=== PATIENT | male | born 1975 ===

== ENCOUNTER 2024-03-12 14:46 | Emergency (ER) | payer OTHER ==
[~2024-03-12] VITALS: Ht 182.9 cm; Wt 90.7 kg
[~2024-03-12 14:46] MED LIST: ACET325 PO; ATOR10 PO; ATOR40TA PO; GABA100 PO; INSULIN GL100 UNIT/2 SC; LISI5 PO; STEGLATRO5 MG PO; VITAMIN D350 MC3
[2024-03-12] MEDS ORDERED: Ondansetron HCl 2 MG / ML 2ML Vial IV ONE ×2 (15:05→17:10)
[2024-03-12] MEDS ORDERED: NS 1,000 ML IV SCH (15:05)
[2024-03-12 15:39] LABS: BASOPHILS ABSOLUTE AUTO 0.03 K/mm3 (0.00-0.23); BASOPHILS PERCENT AUTO 0 % (0-2); Base Excess Venous 0.7 mmol/L; Bicarbonate Venous 26.2 mmol/L (24.0-30.0); EOSINOPHILS PERCENT AUTO 0 % (0-6); Hematocrit 39.6 % (37.0-53.0); Hemoglobin 14.2 g/dL (13.5-17.5); IMMATURE GRAN ABSOLUTE AUTO 0.04 K/mm3 (0.00-0.10); IMMATURE GRAN PERCENT AUTO 0 % (0-1); LYMPHOCYTES ABSOLUTE AUTO 1.38 K/mm3 (0.84-5.20); LYMPHOCYTES PERCENT AUTO 11 % (21-46); MONOCYTES PERCENT AUTO 3 % (4-13); Mean Corpuscular HGB 31.6 pg (26.0-34.0); Mean Corpuscular HGB Conc 35.9 g/dL (31.5-36.5); Mean Corpuscular Volume 88 fL (80-100); Mean Platelet Volume 9.6 fL (9.1-12.4); NEUTROPHILS ABSOLUTE AUTO 10.24 K/mm3 (1.96-9.15); NEUTROPHILS PERCENT AUTO 85 % (41-73); PCO2 Venous 26.4 mmHg (38-42); Platelet Count 275 K/mm3 (150-400); RDW Coefficient Variation 11.7 % (11.7-14.2); RDW Standard Deviation 37.8 fL (35.1-46.3); White Blood Cell Count 12.09 K/mm3 (4.00-11.30); pH Blood Venous 7.55 (7.34-7.37)
[2024-03-12 15:57] LABS: Albumin, Blood 4.3 g/dL (3.4-5.0); Albumin/Globulin Ratio 1.3 (0.8-1.8); Bilirubin, Total 0.7 mg/dL (0.1-1.0); Bun/Creatinine Ratio 31.7 (12.0-20.0); Creatinine, Blood 0.57 mg/dL (0.60-1.20); Globulin, Blood 3.3 g/dL (2.2-4.0); Potassium, Blood 3.8 mmol/L (3.5-5.5); Total Protein, Blood 7.6 g/dL (6.4-8.2)
[2024-03-12] MEDS ORDERED: Insulin Glargine-Yfgn 100 Unit/mL 3 ML SYR SC ONE (16:35)
[2024-03-12] MEDS ORDERED: BASAGLAR K100 UNIT/1 SC (16:39)
[2024-03-12] MEDS ORDERED: Ketorolac Tromethamine 30mg Vial IV ONE (17:05)
[2024-03-12 17:15] VITALS: BP 137/86
== END 2024-03-12 17:44 | disposition home or self-care (01) ==
LOC: ER 14:46
PROVIDERS: Physician Assistant
DX: E11.65 Type 2 diabetes mellitus with hyperglycemia (principal); E86.0 Dehydration; Z79.4 Long term (current) use of insulin; Z79.899 Other long term (current) drug therapy; Z88.0 Allergy status to penicillin
CPT/HCPCS: 80053; 82803; 85025; J1815; J1885; J2405; J7030

== ENCOUNTER 2024-10-08 09:56 | Emergency (ER) | payer OTHER ==
[~2024-10-08] VITALS: Ht 152.4 cm; Wt 95.2 kg
[~2024-10-08 09:56] MED LIST changes: +BASAGLAR K100 UNIT/1 SC; +ONDA4ODT MM; +OXAYDO5 M1 PO
[2024-10-08 10:03] VITALS: BP 155/131
[2024-10-08] MEDS ORDERED: Methocarbamol 500 MG Tab PO ONE (10:25)
[2024-10-08] MEDS ORDERED: Acetaminophen 500 MG Tab PO ONE (10:25)
[2024-10-08] MEDS ORDERED: Ketorolac Tromethamine 30mg Vial IM ONE (10:25)
[2024-10-08] MEDS ORDERED: Robaxin750 MG PO (11:31)
[2024-10-08] MEDS ORDERED: FAMO20 PO (11:31)
[2024-10-08] MEDS ORDERED: IBU600 M1 PO (11:31)
== END 2024-10-08 11:28 | disposition home or self-care (01) ==
LOC: ER 09:56
DX: M54.50 Low back pain, unspecified (principal); G89.29 Other chronic pain; E11.9 Type 2 diabetes mellitus without complications
CPT/HCPCS: 96372; 99283-25; A9270; J1885

== ENCOUNTER 2024-11-02 07:24 | Day surgery (SDC) | payer OTHER ==
[~2024-11-02] VITALS: Ht 182.9 cm; Wt 93.0 kg
[~2024-11-02 07:24] MED LIST changes: +FAMO20 PO; +IBU600 M1 PO; +Robaxin750 MG PO
[2024-11-02] MEDS ORDERED: propofoL 50 ML IV ONE ×2 (07:37→09:46)
[2024-11-02] MEDS ORDERED: Lactated Ringer's 1,000 ML IV ONE ×2 (07:38→08:34)
[2024-11-02] MEDS ORDERED: LOSA25 (08:07)
[2024-11-02] MEDS ORDERED: Midazolam HCL 1 MG/ML 5MLVIAL ONE (09:29)
[2024-11-02 10:26] VITALS: BP 110/72
--- NOTE | 2024-11-02 14:31 | NUR ---
11/02/24 1431 Sarah Rodriguez LATE ENTRY: DUE TO MULTIPLE BODILY MOVEMENTS EVEN WHILE SEDATED PT MAY NEED TO BE ANESTHESIA NEXT TIME.
== END 2024-11-02 10:33 | disposition home or self-care (01) ==
LOC: ORSCSDS 07:24
PROVIDERS: Internal Medicine Gastroenterology
PROC: 0DJ08ZZ Inspection of Upper Intestinal Tract, Via Natural or Artificial Opening Endoscopic (ICD-10-PCS; principal; 2024-11-02 09:00)
PROC: 0DJD8ZZ Inspection of Lower Intestinal Tract, Via Natural or Artificial Opening Endoscopic (ICD-10-PCS; principal; 2024-11-02 09:00)
DX: R10.31 Right lower quadrant pain (principal); K21.9 Gastro-esophageal reflux disease without esophagitis; K92.0 Hematemesis; K44.9 Diaphragmatic hernia without obstruction or gangrene; E11.10 Type 2 diabetes mellitus with ketoacidosis without coma; R74.8 Abnormal levels of other serum enzymes; Z87.11 Personal history of peptic ulcer disease; Z79.899 Other long term (current) drug therapy
CPT/HCPCS: 82947; J2250; J2704; J7120

== ENCOUNTER 2024-11-04 19:08 | Emergency (ER) | payer OTHER ==
[~2024-11-04] VITALS: Ht 180.3 cm; Wt 90.7 kg
[~2024-11-04 19:08] MED LIST changes: +LOSA25
[2024-11-04] MEDS ORDERED: Ondansetron HCl 2 MG / ML 2ML Vial IV ONE (19:20)
[2024-11-04 19:33] LABS: BASOPHILS ABSOLUTE AUTO 0.07 K/mm3 (0.00-0.23); BASOPHILS PERCENT AUTO 1 % (0-2); EOSINOPHILS PERCENT AUTO 1 % (0-6); Hematocrit 41.7 % (37.0-53.0); IMMATURE GRAN ABSOLUTE AUTO 0.04 K/mm3 (0.00-0.10); IMMATURE GRAN PERCENT AUTO 0 % (0-1); LYMPHOCYTES ABSOLUTE AUTO 3.27 K/mm3 (0.84-5.20); LYMPHOCYTES PERCENT AUTO 27 % (21-46); MONOCYTES ABSOLUTE AUTO 1.07 K/mm3 (0.16-1.47); MONOCYTES PERCENT AUTO 9 % (4-13); Mean Corpuscular HGB 31.4 pg (26.0-34.0); Mean Corpuscular Volume 87 fL (80-100); Mean Platelet Volume 9.2 fL (9.1-12.4); NEUTROPHILS PERCENT AUTO 62 % (41-73); Platelet Count 352 K/mm3 (150-400); RDW Coefficient Variation 11.9 % (11.7-14.2); RDW Standard Deviation 38.2 fL (35.1-46.3); Red Blood Cell Count 4.78 M/mm3 (4.30-5.90); White Blood Cell Count 12.05 K/mm3 (4.00-11.30)
[2024-11-04 20:08] LABS: Albumin, Blood 4.8 g/dL (3.4-5.0); Albumin/Globulin Ratio 1.3 (0.8-1.8); Bilirubin, Total 0.8 mg/dL (0.1-1.0); Bun/Creatinine Ratio 30.3 (12.0-20.0); Calcium, Blood 10.1 mg/dL (8.5-10.1); Creatinine, Blood 0.76 mg/dL (0.60-1.20); Globulin, Blood 3.7 g/dL (2.2-4.0); Potassium, Blood 3.7 mmol/L (3.5-5.5); Total Protein, Blood 8.5 g/dL (6.4-8.2)
[2024-11-04] MEDS ORDERED: Metoclopramide HCl 5MG / ML 2ML Vial IV ONE (23:00)
[2024-11-04] MEDS ORDERED: Ketorolac Tromethamine 30mg Vial IV ONE (23:00)
[2024-11-04] MEDS ORDERED: NS 1,000 ML IV SCH (23:00)
[2024-11-05 01:36] VITALS: BP 117/64
[2024-11-05] MEDS ORDERED: METO5A PO (02:04)
== END 2024-11-05 02:37 | disposition home or self-care (01) ==
LOC: ER 19:08
PROVIDERS: Student in an Organized Health Care Education/Training Program
DX: R11.2 Nausea with vomiting, unspecified (principal); E11.65 Type 2 diabetes mellitus with hyperglycemia; D72.829 Elevated white blood cell count, unspecified; E78.5 Hyperlipidemia, unspecified; G47.33 Obstructive sleep apnea (adult) (pediatric); I10 Essential (primary) hypertension; Z79.4 Long term (current) use of insulin; Z79.899 Other long term (current) drug therapy; Z88.0 Allergy status to penicillin
CPT/HCPCS: 74177; 80053; 84484; 85025; 93005; 93010; 96374-59; 96375; 99284-25; J1885; J2405; J2765; J7030; Q9967

== ENCOUNTER 2025-02-27 11:37 | Emergency (ER) | payer OTHER ==
[~2025-02-27] VITALS: Ht 182.9 cm; Wt 99.8 kg
[~2025-02-27 11:37] MED LIST changes: +METO5A PO
[2025-02-27] MEDS ORDERED: Ondansetron HCl 2 MG / ML 2ML Vial IV ONE (11:50)
[2025-02-27] MEDS ORDERED: Ketorolac Tromethamine 30mg Vial IV ONE (11:50)
[2025-02-27] MEDS ORDERED: NS 1,000 ML IV SCH ×2 (11:50→16:00)
[2025-02-27 12:33] LABS: BASOPHILS ABSOLUTE AUTO 0.05 K/mm3 (0.00-0.23); BASOPHILS PERCENT AUTO 0 % (0-2); EOSINOPHILS ABSOLUTE AUTO 0.00 K/mm3 (0.00-0.68); EOSINOPHILS PERCENT AUTO 0 % (0-6); Hematocrit 38.7 % (37.0-53.0); Hemoglobin 13.7 g/dL (13.5-17.5); IMMATURE GRAN ABSOLUTE AUTO 0.04 K/mm3 (0.00-0.10); IMMATURE GRAN PERCENT AUTO 0 % (0-1); LYMPHOCYTES ABSOLUTE AUTO 1.12 K/mm3 (0.84-5.20); LYMPHOCYTES PERCENT AUTO 9 % (21-46); MONOCYTES ABSOLUTE AUTO 0.39 K/mm3 (0.16-1.47); MONOCYTES PERCENT AUTO 3 % (4-13); Mean Corpuscular HGB Conc 35.4 g/dL (31.5-36.5); Mean Corpuscular Volume 88 fL (80-100); NEUTROPHILS ABSOLUTE AUTO 10.93 K/mm3 (1.96-9.15); NEUTROPHILS PERCENT AUTO 87 % (41-73); NRBC ABSOLUTE 0.00 K/mm3 (0.00-0.02); NRBC Auto 0.0 /100 WBC (0.0-0.2); Platelet Count 332 K/mm3 (150-400); RDW Coefficient Variation 11.7 % (11.7-14.2); RDW Standard Deviation 37.7 fL (35.1-46.3)
[2025-02-27 12:55] LABS: Alanine Aminotransfer (ALT/SGP 37.0 U/L (12-78); Albumin, Blood 4.5 g/dL (3.4-5.0); Albumin/Globulin Ratio 1.1 (0.8-1.8); Anion Gap 14.0 mmol/L (3-11); Aspartate Aminotrans (AST/SGOT 19.0 U/L (12-37); Bilirubin, Total 0.7 mg/dL (0.1-1.0); Blood Urea Nitrogen 20.0 mg/dL (8-24); CO2, Blood 21.0 mmol/L (21-32); Calcium, Blood 9.7 mg/dL (8.5-10.1); Chloride, Blood 105.0 mmol/L (98-108); Creatinine, Blood 0.66 mg/dL (0.60-1.20); Globulin, Blood 4.0 g/dL (2.2-4.0); Glucose, Blood 303.0 mg/dL (70-99); Potassium, Blood 3.8 mmol/L (3.5-5.5); Sodium, Blood 136.0 mmol/L (136-145); Total Protein, Blood 8.5 g/dL (6.4-8.2)
[2025-02-27] MEDS ORDERED: Metoclopramide HCl 5MG / ML 2ML Vial IV ONE (16:00)
[2025-02-27 18:12] LABS: Source, Urine Voided
[2025-02-27] MEDS ORDERED: Morphine Sulfate 4 MG/1 ML Injection IV ONE (18:15)
[2025-02-27 18:36] LABS: Bilirubin, Urine Neg (Neg); Color, Urine Yellow (P-Yellow); Glucose Qualitative, Urine 4+ (Neg); Ketones, Urine 4+ (Neg); Leukocyte Esterase, Urine Neg (Neg); Protein, Urine 1+ (Neg); Specific Gravity, Urine 1.015 (1.003-1.022); Urobilinogen, Urine NORM (Normal)
[2025-02-27] MEDS ORDERED: METO10 PO (19:10)
[2025-02-27 19:38] VITALS: BP 162/87
== END 2025-02-27 19:40 | disposition home or self-care (01) ==
LOC: ER 11:37
PROVIDERS: Emergency Medicine
DX: R11.2 Nausea with vomiting, unspecified (principal); E11.65 Type 2 diabetes mellitus with hyperglycemia; I10 Essential (primary) hypertension; E78.5 Hyperlipidemia, unspecified; G47.33 Obstructive sleep apnea (adult) (pediatric); Z88.0 Allergy status to penicillin; Z79.4 Long term (current) use of insulin; Z79.899 Other long term (current) drug therapy
CPT/HCPCS: 71045; 80053; 82947; 85025; 93005; 93010; 96361; 96374; 96375; 99284-25; J1885; J2270; J2405; J2765; J7030

== ENCOUNTER 2025-04-10 13:45 | Emergency (ER) | payer OTHER ==
[~2025-04-10] VITALS: Ht 182.9 cm; Wt 102.1 kg
[~2025-04-10 13:45] MED LIST changes: +METO10 PO
[2025-04-10] MEDS ORDERED: Ondansetron HCl 2 MG / ML 2ML Vial IV ONE (14:10)
[2025-04-10 14:28] LABS: BASOPHILS ABSOLUTE AUTO 0.06 K/mm3 (0.00-0.23); BASOPHILS PERCENT AUTO 1 % (0-2); EOSINOPHILS ABSOLUTE AUTO 0.01 K/mm3 (0.00-0.68); EOSINOPHILS PERCENT AUTO 0 % (0-6); Hematocrit 40.7 % (37.0-53.0); Hemoglobin 14.4 g/dL (13.5-17.5); IMMATURE GRAN ABSOLUTE AUTO 0.02 K/mm3 (0.00-0.10); IMMATURE GRAN PERCENT AUTO 0 % (0-1); LYMPHOCYTES ABSOLUTE AUTO 1.33 K/mm3 (0.84-5.20); LYMPHOCYTES PERCENT AUTO 12 % (21-46); MONOCYTES ABSOLUTE AUTO 0.48 K/mm3 (0.16-1.47); MONOCYTES PERCENT AUTO 4 % (4-13); Mean Corpuscular HGB Conc 35.4 g/dL (31.5-36.5); Mean Corpuscular Volume 88 fL (80-100); NEUTROPHILS ABSOLUTE AUTO 9.51 K/mm3 (1.96-9.15); NEUTROPHILS PERCENT AUTO 83 % (41-73); NRBC ABSOLUTE 0.00 K/mm3 (0.00-0.02); NRBC Auto 0.0 /100 WBC (0.0-0.2); Platelet Count 370 K/mm3 (150-400); RDW Coefficient Variation 12.0 % (11.7-14.2); RDW Standard Deviation 38.5 fL (35.1-46.3)
[2025-04-10] MEDS ORDERED: NS 1,000 ML IV SCH ×2 (14:35→16:05)
[2025-04-10 14:58] LABS: Alanine Aminotransfer (ALT/SGP 36.0 U/L (12-78); Albumin, Blood 4.5 g/dL (3.4-5.0); Albumin/Globulin Ratio 1.2 (0.8-1.8); Anion Gap 16.0 mmol/L (3-11); Aspartate Aminotrans (AST/SGOT 23.0 U/L (12-37); Bilirubin, Total 0.8 mg/dL (0.1-1.0); Blood Urea Nitrogen 22.0 mg/dL (8-24); CO2, Blood 19.0 mmol/L (21-32); Calcium, Blood 10.1 mg/dL (8.5-10.1); Chloride, Blood 105.0 mmol/L (98-108); Creatinine, Blood 0.67 mg/dL (0.60-1.20); Globulin, Blood 3.8 g/dL (2.2-4.0); Glucose, Blood 357.0 mg/dL (70-99); Potassium, Blood 4.6 mmol/L (3.5-5.5); Sodium, Blood 135.0 mmol/L (136-145); Total Protein, Blood 8.3 g/dL (6.4-8.2)
[2025-04-10] MEDS ORDERED: Metoclopramide HCl 5MG / ML 2ML Vial IV ONE (16:30)
[2025-04-10 16:33] LABS: Source, Urine Clean Catch
[2025-04-10 16:40] LABS: Bilirubin, Urine Neg (Neg); Color, Urine Yellow (P-Yellow); Glucose Qualitative, Urine 4+ (Neg); Ketones, Urine 4+ (Neg); Leukocyte Esterase, Urine Neg (Neg); Protein, Urine 2+ (Neg); Specific Gravity, Urine 1.015 (1.003-1.022); Urobilinogen, Urine NORM (Normal)
[2025-04-10 16:47] LABS: Red Blood Cells, Urine 0-2 /hpf (0-2); White Blood Cells, Urine 0-2 /hpf (0-5)
[2025-04-10] MEDS ORDERED: NS 1,000 ML IV ONE ×2 (17:22→18:09)
[2025-04-10 17:31] LABS: pH Blood Venous 7.38 (7.34-7.37)
[2025-04-10 18:24] VITALS: BP 156/86
[2025-04-10] MEDS ORDERED: METO10 PO (18:43)
== END 2025-04-10 19:26 | disposition home or self-care (01) ==
LOC: ER 13:45
PROVIDERS: Emergency Medicine; Physician Assistant
DX: E11.43 Type 2 diabetes mellitus with diabetic autonomic (poly)neuropathy (principal); K31.84 Gastroparesis; Z79.4 Long term (current) use of insulin; Z79.899 Other long term (current) drug therapy; Z88.0 Allergy status to penicillin
CPT/HCPCS: 80053; 81001; 82010; 82803; 83690; 85025; A9270; J2405; J2765; J7030

== ENCOUNTER → 2025-06-30 | Outpatient (CLI) | payer OTHER ==
[2025-06-30 13:16] LABS: Alanine Aminotransfer (ALT/SGP 21.0 U/L (12-78); Albumin, Blood 4.0 g/dL (3.4-5.0); Albumin/Globulin Ratio 1.1 (0.8-1.8); Anion Gap 10.0 mmol/L (3-11); Aspartate Aminotrans (AST/SGOT 12.0 U/L (12-37); Bilirubin, Total 0.7 mg/dL (0.1-1.0); Blood Urea Nitrogen 13.0 mg/dL (8-24); CO2, Blood 28.0 mmol/L (21-32); Calcium, Blood 9.0 mg/dL (8.5-10.1); Chloride, Blood 102.0 mmol/L (98-108); Creatinine, Blood 0.58 mg/dL (0.60-1.20); Globulin, Blood 3.6 g/dL (2.2-4.0); Glucose, Blood 230.0 mg/dL (70-99); Potassium, Blood 3.6 mmol/L (3.5-5.5); Sodium, Blood 136.0 mmol/L (136-145); Total Protein, Blood 7.6 g/dL (6.4-8.2)
== END ==
LOC: LAB SHORT 12:02 → LAB 12:02
PROVIDERS: Family Medicine
DX: E11.65 Type 2 diabetes mellitus with hyperglycemia (principal)
CPT/HCPCS: 80053